=== PATIENT | female | born 1950 | race Caucasian/White ===

== ENCOUNTER → 2023-04-17 | Outpatient (CLI) | payer MEDICARE, OTHER ==
[~2023-04-17] VITALS: Ht 170 cm; Wt 68.0 kg
[~2023-04-17] MED LIST: REGADENOSON 0.4 MG/5 ML SYR (LEXISCAN) IV ONE
[2023-04-17] MEDS: CATHETER FLUSH 10 ML SYR IVP PRN ×2 (07:25→09:11)
[2023-04-17 09:08] VITALS: BP 118/76
== END ==
LOC: CARD 07:04
PROVIDERS: ATTEND Family Medicine
DX: R07.9 Chest pain, unspecified (principal)
CPT/HCPCS: 78452; 93017; A9502